=== PATIENT | female | born 1965 | race Caucasian/White ===

== ENCOUNTER 2018-01-01 08:18 | Emergency (ER) | payer MEDICAID ==
[~2018-01-01] VITALS: Ht 175.3 cm; Wt 100.0 kg
[~2018-01-01 08:18] MED LIST: AMOXICILLIN500 MG OR; ATENOL/CHLOR1 TA2 PO; ATENOLOL25 MG PO; DOXYCYCL HYC100 MG PO; KEFLEX500 M1 PO; MECLIZINE25 MG PO; NAPROSYN500 MG PO; OXYCODONE HCL5 MG PO; PERCOCET 5/325M1 TAB PO; ROBITUSSIN AC10 ML PO; TENORMIN OR; TESSALON PER100 MG PO; ULTRAM50 M1 PO; ULTRAM50 MG OR; VALIUM5 MG PO; ZITHROMAX250 MG PO
[2018-01-01] MEDS ORDERED: KEFLEX500 MG PO (09:38)
[2018-01-01] MEDS ORDERED: CIPROFLOXACN500 MG PO (09:38)
[2018-01-01] MEDS ORDERED: NAPROSYN500 MG PO (09:39)
[2018-01-01 10:00] VITALS: BP 150/90
== END 2018-01-01 10:07 | disposition home or self-care (01) ==
LOC: ED 08:18
DX: S91.341A Puncture wound with foreign body, right foot, initial encounter (principal); I10 Essential (primary) hypertension; I73.9 Peripheral vascular disease, unspecified; F17.210 Nicotine dependence, cigarettes, uncomplicated; W20.8XXA Other cause of strike by thrown, projected or falling object, initial encounter; Y93.H2 Activity, gardening and landscaping; Y92.007 Garden or yard of unspecified non-institutional (private) residence as the place of occurrence of the external cause

== ENCOUNTER 2018-08-30 05:01 | Emergency (ER) | payer MEDICAID ==
[~2018-08-30] VITALS: Ht 175.3 cm; Wt 77.0 kg
[~2018-08-30 05:01] MED LIST changes: +CIPROFLOXACN500 MG PO; +KEFLEX500 MG PO
[2018-08-30 05:42] LABS: HEMATOCRIT 47.4 % (37.0-47.0); HEMOGLOBIN 16.2 g/dl (12.0-16.0); IMMATURE GRANULOCYTES 0.3 % (0.0-5.0); MEAN CELL VOLUME 98.8 fL CALC (80.0-100.0); MEAN CORPUSCULAR HGB 33.8 pG CALC (26.0-32.0); MEAN CORPUSCULAR HGB CONC 34.2 g/L CALC (32.0-36.0); NEUT# 5.41 thou/uL (2.00-7.15); RED BLOOD COUNT 4.8 mill/uL (4.20-5.60)
[2018-08-30 05:49] LABS: ALBUMIN 4.7 g/dL (3.2-5.0); ALKALINE PHOSPHATASE 70 u/l (38-126); ANION GAP 15 (6-22 (CALC)); BILIRUBIN, TOTAL 0.7 mg/dL (0.0-1.4); BUN 10 mg/dL (7-17); BUN/CREATININE RATIO 19 (12-20 (CALC)); CARBON DIOXIDE 26 mmol/l (22-30); CHLORIDE 101 mmol/l (95-108); CREATININE 0.5 mg/dL (0.5-1.0); GFR > 60 ML/MIN (>=60 (CALC)); GFR FOR AFR.AMER. > 60 ML/MIN (>=60 (CALC)); SODIUM 137 mmol/l (137-146); TOTAL PROTEIN 8.2 g/dL (6.3-8.2)
[2018-08-30 05:52] LABS: SGOT/AST 85 u/l (14-36)
[2018-08-30 06:00] LABS: MYOGLOBIN 18 ng/mL (0 - 62)
[2018-08-30 06:20] LABS: URINE BILIRUBIN - DIPSTICK NEGATIVE (NEGATIVE); URINE BLOOD DIPSTICK NEGATIVE (NEGATIVE); URINE COLOR YELLOW; URINE GLUCOSE - DIPSTICK NEGATIVE (NEGATIVE); URINE KETONE NEGATIVE (NEGATIVE); URINE LEUK ESTERASE NEGATIVE (NEGATIVE); URINE NITRITE - DIPSTICK NEGATIVE (Negative); URINE PROTEIN - DIPSTICK NEGATIVE (NEG-TRACE); URINE SPECIFIC GRAVITY <=1.005; URINE UROBILINOGEN - DIPSTICK 0.2 E.U./dL (0.2)
[2018-08-30] MEDS ORDERED: PROTONIX40 MG PO (06:57)
[2018-08-30] MEDS ORDERED: MECLIZINE25 M1 PO (06:57)
[2018-08-30 06:59] VITALS: BP 152/86
== END 2018-08-30 07:05 | disposition home or self-care (01) ==
LOC: ED 05:01
PROVIDERS: Emergency Medicine
DX: R12 Heartburn (principal); R42 Dizziness and giddiness; I10 Essential (primary) hypertension; I73.9 Peripheral vascular disease, unspecified; F17.200 Nicotine dependence, unspecified, uncomplicated; R07.9 Chest pain, unspecified

== ENCOUNTER 2022-01-31 06:35 | Emergency (ER) | payer MEDICAID ==
[2022-01-31] VITALS (8 sets, daily range): BP systolic 154–195; BP diastolic 88–111
[~2022-01-31] VITALS: Ht 175.3 cm; Wt 79.0 kg
[~2022-01-31 06:35] MED LIST changes: +CYCLOBENZAPR5 MG PO; +MECLIZINE25 M1 PO; +PREDNISONE50 MG PO; +PROTONIX40 MG PO; +ZPAK PO
[2022-01-31] MEDS ORDERED: NAPROXEN500 MG PO (07:50)
== END 2022-01-31 08:00 | disposition home or self-care (01) ==
LOC: ED 06:35
DX: S80.811A Abrasion, right lower leg, initial encounter (principal); I10 Essential (primary) hypertension; I73.9 Peripheral vascular disease, unspecified; F17.200 Nicotine dependence, unspecified, uncomplicated; W22.09XA Striking against other stationary object, initial encounter; Z91.14 Patient's other noncompliance with medication regimen

== ENCOUNTER 2022-10-20 12:02 | Emergency (ER) | payer MEDICAID ==
[~2022-10-20] VITALS: Ht 175.3 cm; Wt 65.0 kg
[~2022-10-20 12:02] MED LIST changes: +NAPROXEN500 MG PO
[2022-10-20] MEDS ORDERED: CEPHALEXIN500 M1 PO (13:18)
[2022-10-20] MEDS ORDERED: LISINOPRIL10 MG PO (13:18)
[2022-10-20 13:40] VITALS: BP 174/110
== END 2022-10-20 13:42 | disposition home or self-care (01) ==
LOC: ED 12:02
DX: S61.213A Laceration without foreign body of left middle finger without damage to nail, initial encounter (principal); I10 Essential (primary) hypertension; I73.9 Peripheral vascular disease, unspecified; W27.8XXA Contact with other nonpowered hand tool, initial encounter; Y92.009 Unspecified place in unspecified non-institutional (private) residence as the place of occurrence of the external cause

== ENCOUNTER 2022-10-29 08:38 | Emergency (ER) | payer MEDICAID ==
[~2022-10-29] VITALS: Ht 175.3 cm; Wt 68.0 kg
[~2022-10-29 08:38] MED LIST changes: +CEPHALEXIN500 M1 PO; +LISINOPRIL10 MG PO
[2022-10-29 10:01] VITALS: BP 171/111
== END 2022-10-29 10:02 | disposition home or self-care (01) ==
LOC: ED 08:38
DX: S61.412D Laceration without foreign body of left hand, subsequent encounter (principal); I10 Essential (primary) hypertension; I73.9 Peripheral vascular disease, unspecified; F17.200 Nicotine dependence, unspecified, uncomplicated; X58.XXXD Exposure to other specified factors, subsequent encounter

== ENCOUNTER 2024-03-07 07:46 | Emergency (ER) | payer MEDICAID ==
[2024-03-07] VITALS (11 sets, daily range): BP systolic 163–221; BP diastolic 89–110
[~2024-03-07] VITALS: Ht 175.3 cm; Wt 82.9 kg
[2024-03-07] MEDS ORDERED: METOPROLOL TARTRATE 5 MG/5 ML VIAL IV ONE (08:15)
[2024-03-07] MEDS ORDERED: DEXAMETHASONE SOD. PHOSPHATE 10 MG/ML VIAL IM ONE (08:15)
[2024-03-07] MEDS ORDERED: KETOROLAC TROMETHAMINE 30 MG/ML SDV IM ONE (08:15)
[2024-03-07 08:53] LABS: BASO% 0.7 % (0-3); EOS% 0.5 % (0-8); HEMOGLOBIN 16.3 g/dl (12.0-16.0); IMMATURE GRANULOCYTES 0.1 % (0.0-5.0); LYMPH% 37.2 % (15-41); MEAN CORPUSCULAR HGB 33.9 pG CALC (26.0-32.0); MEAN CORPUSCULAR HGB CONC 32.9 g/dL CAL (32.0-36.0); MONO% 8.2 % (2-13); NEUT# 3.9 thou/uL (2.00-7.15); NEUT% 53.3 % (42-76); RED BLOOD COUNT 4.81 mill/uL (4.20-5.60); RED CELL DISTRI WIDTH 11.8 % (11.5-15.5)
[2024-03-07 09:03] LABS: HEMATOCRIT 49.5 % (37.0-47.0); MEAN CELL VOLUME 102.9 fL CALC (80.0-100.0)
[2024-03-07 09:08] LABS: ALKALINE PHOSPHATASE 77 u/l (38-126); BUN 8 mg/dL (7-17); BUN/CREATININE RATIO 13 (12-20 (CALC)); CHLORIDE 105 mmol/l (95-108); CREATININE 0.6 mg/dL (0.5-1.0); ESTIMATED GFR 103 ML/MIN (>=90 (CALC)); POTASSIUM 3.7 mmol/l (3.5-5.1); SGOT/AST 81 u/l (14-36); SODIUM 135 mmol/l (137-146); TOTAL PROTEIN 8.9 g/dL (6.3-8.2)
[2024-03-07 09:17] LABS: ANION GAP 11 (6-22 (CALC)); CARBON DIOXIDE 23 mmol/l (22-30)
[2024-03-07] MEDS ORDERED: METOPROL TAR25 M1 PO (10:05)
[2024-03-07] MEDS ORDERED: MEDDOSEPAK PO (10:05)
[2024-03-07] MEDS ORDERED: NABUMETONE750 MG PO (10:05)
== END 2024-03-07 10:28 | disposition home or self-care (01) ==
LOC: ED 07:46
PROVIDERS: Emergency Medicine
DX: M62.830 Muscle spasm of back (principal); I10 Essential (primary) hypertension; I73.9 Peripheral vascular disease, unspecified; F17.210 Nicotine dependence, cigarettes, uncomplicated; Z91.148 Patient's other noncompliance with medication regimen for other reason